=== PATIENT | female | born 1955 | race Caucasian/White ===

== ENCOUNTER 2016-10-05 08:57 | Day surgery (SDC) | payer MEDICARE, MEDICAID ==
[2016-10-05] VITALS (8 sets, daily range): BP systolic 98–129; BP diastolic 55–71
[~2016-10-05] VITALS: Ht 167.6 cm; Wt 83.9 kg
[~2016-10-05 08:57] MED LIST: No medication
[2016-10-05] MEDS ORDERED: NKM (09:44)
--- NOTE | 2016-10-05 10:09 | Pre-Procedure Note/Attestation ---
Pre-Procedure Note/Attestation Complete Prior to Procedure Planned Procedure: not applicable Procedure Narrative: colonoscopy Indications for Procedure Pre-Operative Diagnosis: screening Attestation I attest that I discussed the nature of the procedure; its benefits; risks and complications; and alternatives (and the risks and benefits of such alternatives ), prior to the procedure, with the patient (or the patient's legal regional sales representative). I attest that, if there was a reasonable possibility of needing a blood transfusion, the patient (or the patient's legal regional sales representative) was given the [facility] standardized written summary, pursuant to the [place] Blood Safety Act ([place] Health and Safety Code # 1645, as amended). I attest that I re-evaluated the patient just prior to the surgery and that there has been no change in the patient's H&P, except as documented below: SHARAD HARRISON Oct 05, 2016 10:09
--- NOTE | 2016-10-05 10:11 | Short Stay Surgery H&P ---
History of Present Illness History of Present Illness Chief Complaint screening HPI Evi Dent is a 61 year old female who was admitted on for Colon Screening Patient History Allergies: Uncoded Allergies: sulfa drugs (Allergy, Mild, 10/05/16) rashes on the chest area PAST MEDICAL HISTORY: (1) History of colonoscopy (2) Colonoscopy planned (3) Diverticulosis of sigmoid colon Past Surgeries: Social History: Medication History Scheduled No Known Medications* (NKM - No Known Medications*), 0 ., (Reported) Miscellaneous Medications [No medication ], (Reported) Review of Systems Cardiovascular: Reports: no symptoms Respiratory: Reports: no symptoms Skeletal: Reports: no symptoms Gastrointestinal: Reports: no symptoms Genitourinary: Reports: no symptoms Neurologic: Reports: no symptoms Endocrine: Reports: no symptoms Hematologic: Reports: no symptoms Physical Exam Vital Signs Last Vital Signs Date Time Temp Pulse Resp B/P Pulse Ox O2 Delivery O2 Flow Rate FiO2 10/05/16 09:53 97.3 65 18 129/71 99 Room Air Skin: normal HENT: normal Heart: normal Lungs: normal Abdomen: normal Extremities: normal Plan Plan of Care colonoscopy Final Diagnosis: Attestation Are the patient's medical conditions optimized for surgery? Attestation Response: yes SHARAD HARRISON Oct 05, 2016 10:11
[2016-10-05] MEDS ORDERED: Propofol 10mg/ml 20ml IV ONE (10:30)
[2016-10-05] MEDS ORDERED: LR 1000ml ONE (10:30)
[2016-10-05] MEDS ORDERED: LR 1000ml 1,000 ML IVLG SCH (10:44)
[2016-10-05] MEDS ORDERED: fentaNYL 100 mcg/2 mL IV PRN (10:45)
[2016-10-05] MEDS ORDERED: LR 1000ml 1,000 ML IV SCH (10:45)
--- NOTE | 2016-10-05 10:48 | Anethesia Preoperative Eval ---
Anesthesia Pre-op PMH/ROS General Date of Evaluation: Oct 05, 2016 Time of Evaluation: 10:21 Anesthesiologist: Joy Mallampati Score Class I : Soft palate, uvula, fauces, pillars visible Class II: Soft palate, uvula, fauces visible Class III: Soft palate, base of uvula visible Class IV: Only hard plate visible Mallampati Classification: Class I Surgeon: Maral Diagnosis: Screening Surgical Procedure: Colonoscopy Allergies: Uncoded Allergies: sulfa drugs (Allergy, Mild, 10/05/16) rashes on the chest area Medications: see eMAR Past Medical History Cardiovascular: Denies: CAD, HTN, CT, arrhythmia, other, valve dz Pulmonary: Denies: COPD, GLORIA, asthma, other Gastrointestinal/Genitourinary: Denies: CRI, ESRD, GERD, other Neurologic/Psychiatric: Denies: CVA, TIA, dementia, depression/anxiety, other Endocrine: Denies: DM, hypothyroidism, other, steroids HEENT: Denies: YOMBA SHOSHONE (L), YOMBA SHOSHONE (R), cataract (L), cataract (R), glaucoma, other Hematology/Immune: Denies: DVT, anemia, bleeding disorder, other Musculoskeletal/Integumentary: Denies: DDD, DJD, OA, RA, edema, other PMH Narrative: Denies significant PMH PSxH Narrative: T & A, colonoscopy Anesthesia Pre-op Phys. Exam Physician Exam Last Vital Signs Date Time Temp Pulse Resp B/P Pulse Ox O2 Delivery O2 Flow Rate FiO2 10/05/16 09:53 97.3 65 18 129/71 99 Room Air Constitutional: NAD Neurologic: CN 2-12 intact Cardiovascular: RRR, no M/R/G Respiratory: CTA Gastrointestinal: S/NT/ND Airway Exam Mallampati Score: Class II MO: full ROM: full Teeth: intact Anesthesia Pre-op A/P Studies Pre-op Studies: EKG - Sinus kiel Risk Assessment & Plan Assessment: Healthy female for screening colonoscopy Plan: GA, TIVA Pre-Antibiotics Drug: None KELSY METZGER M.D. Oct 05, 2016 10:48
--- NOTE | 2016-10-05 10:48 | Immediate Post-Op Evaluation ---
Immediate Post-Op Evalulation Immediate Post-Op Evalulation Procedure: Screening colonoscopy Date of Evaluation: Oct 05, 2016 Time of Evaluation: 11:07 IV Fluids: 200 Blood Pressure Systolic: 125 Blood Pressure Diastolic: 55 Pulse Rate: 60 Respiratory Rate: 18 O2 Sat by Pulse Oximetry: 99 Temperature (Fahrenheit): 97.3 Pain Score (1-10): 0 Nausea: No Vomiting: No Complications No complications Patient Status: awake, patent, none Hydration Status: adequate Drug: None KELSY METZGER M.D. Oct 05, 2016 10:48
--- NOTE | 2016-10-05 10:57 | Endoscopy Procedure Note ---
Endoscopy Procedure Note Indication for Procedure: screening Procedures Performed: colonoscopy Operative Findings/Diagnosis: one polyp Specimen: yes Pt Tolerated Procedure Well: Yes Estimated Blood Loss: none Anesthesiologist: afshin Anesthesia: MAC Implant(s) used?: No 50 yrs or older w/o bx or poly: No 10yrs. F/U not recommended: Yes If not recommended, why?: Above average risk 10 yrs. F/U needed: Yes 18 years or older w/prev. colo: Yes <3yrs. since last colonoscopy: No SHARAD HARRISON Oct 05, 2016 10:57
--- NOTE | 2016-10-05 11:04 | 48 Hour Post Anesthesia Eval ---
Post Anesthesia Evaluation Procedure: Screening colonoscopy Date of Evaluation: Oct 05, 2016 Time of Evaluation: 11:30 Blood Pressure Systolic: 103 0: 63 Pulse Rate: 63 Respiratory Rate: 12 O2 Sat by Pulse Oximetry: 97 Airway: patent Nausea: No Vomiting: No Pain Intensity: 0 Hydration Status: adequate Cardiopulmonary Status: Stable Mental Status/LOC: patient returned to baseline Follow-up Care/Observations: As per GI Post-Anesthesia Complications: No anesthetic complication Follow-up care needed: N/A KELSY METZGER M.D. Oct 05, 2016 11:04
--- NOTE | 2016-10-05 16:15 | Procedure Note ---
DATE OF PROCEDURE: 10/05/2016 SURGEON: Jeremiah Alicia M.D. PROCEDURE: Colonoscopy with biopsy. ANESTHESIA: Dr. Lincoln Hamilton. INSTRUMENT: Olympus adult flexible colonoscope. INDICATION: Screening colonoscopy. REASON FOR PROCEDURE: The procedure, risks, benefits, and possible consequences, including hemorrhage, aspiration, perforation and infection, and alternative treatments, were explained to the patient/legal guardian by Dr. Jeremiah Alicia and the patient/legal guardian understood and accepted these risks. DESCRIPTION OF PROCEDURE: After informed consent was obtained and the patient was adequately sedated, first rectal exam was performed, which was normal. Then, the scope was advanced from rectum into the cecum, documented by appendiceal orifice, ileocecal valve, and right upper quadrant palpation. Then the scope was advanced from the cecum into the terminal ileum. Quality of prep was very good. The patient had evidence of significant diverticulosis in the left colon. One diminutive polyp was seen in the sigmoid colon, which was removed with the cold biopsy forceps technique. Retroflexion of rectum showed no evidence of any obvious large internal hemorrhoids. The patient tolerated the procedure well without any complication. FINDINGS: 1. Diverticulosis mostly in the left colon, [id number]. 2. One diminutive polyp removed from the sigmoid colon. RECOMMENDATIONS: 1. Follow biopsy results and treat accordingly. 2. We will repeat colonoscopy in five years. Jeremiah Alicia M.D. DR: Kraig JOB#: [id number] CC:
--- NOTE | 2016-10-06 15:10 | Cardiology Report ---
APPROVED REPORT EKG Measurement Heart [id number] Sinus bradycardia Otherwise normal ECG
== END 2016-10-05 12:35 | disposition home or self-care (01) ==
LOC: GAS 08:57
DX: Z12.11 Encounter for screening for malignant neoplasm of colon (principal); D12.5 Benign neoplasm of sigmoid colon; K57.30 Diverticulosis of large intestine without perforation or abscess without bleeding; Z88.2 Allergy status to sulfonamides
CPT/HCPCS: 45380; 93005; J2704; J7120; 94003; 94150